=== PATIENT | female | born 1985 | race Caucasian/White ===

== ENCOUNTER → 2017-08-10 | Outpatient (CLI) | payer BC ==
[~2017-08-10] MED LIST: ACE3 PO; CALC-515 PO; FERR-1 PO; HYDR2TAB4 PO; IBU800 PO; IBUP-56 PO; IBUP800T37 PO; NORG1TAB76 PO; NORG1TAB97 PO; RED600CA15 PO; UBID30CA27 PO
[2017-08-10 08:38] LABS: PLATELET COUNT, AUTOMATED 268 K/uL (150-450)
[2017-08-10 09:16] LABS: LDL CHOLESTEROL 146 mg/dl
== END ==
LOC: LAB 08:14
PROVIDERS: ATTEND Nurse Practitioner Family
DX: Z00.01 Encounter for general adult medical examination with abnormal findings (principal); N92.6 Irregular menstruation, unspecified
CPT/HCPCS: 36415; 82040; 82247; 82310; 82374; 82435; 82465; 82565; 82947; 83718; 84075; 84132; 84155; 84295; 84443; 84450; 84460; 84478; 84520; 84703; 85025

== ENCOUNTER 2018-09-04 05:29 | Inpatient (IN) | payer BC ==
[~2018-09-04] VITALS: Ht 162.6 cm; Wt 71.7 kg
[2018-09-04] MEDS ORDERED: cefOXitin/DEX(*) 2GM/50ML PREM 50 ML IVPB PRN (05:35)
[2018-09-04] MEDS ORDERED: METOCLOPRAMIDE 10 MG/2 ML SDV IVP PRN (05:35)
[2018-09-04] MEDS ORDERED: LIDOCAINE 1% LOCAL 300 MG/30ML INJ PRN (05:35)
[2018-09-04] MEDS ORDERED: FAMOTIDINE(*) 20MG/50ML PREMIX 50 ML IVPB PRN (05:35)
[2018-09-04] MEDS ORDERED: DLR(*) 1000 ML BAG 1,000 ML IV PRN (05:35)
[2018-09-04] MEDS ORDERED: FLUSH 10 ML SYR IVP PRN (05:35)
[2018-09-04] MEDS ORDERED: fentaNYL CITR 100 MCG/2 ML AMP IVP PRN (05:35)
[2018-09-04] MEDS ORDERED: OXYTOCIN 30 UNIT/D5LR 500 ML 500 ML IV PRN (05:35)
[2018-09-04 05:50] VITALS: BP_SYST 117; BP_SYST 124; BP_DIAS 79; BP_DIAS 81; Ht 162.6 cm; Wt 71.7 kg
[2018-09-04] MEDS ORDERED: PENICILLIN G 5 MILLUN/100 ML 100 ML IVPB ONE (06:00)
[2018-09-04] MEDS: LR(*) 1000 ML BAG 1,000 ML IV PRN ×4 (06:10→13:31)
[2018-09-04 06:17] LABS: PLATELET COUNT, AUTOMATED 182 K/uL (150-450)
[2018-09-04] MEDS: OXYTOCIN 30 UNIT/D5LR 500 ML 500 ML IV PRN ×2 (06:45→07:11)
[2018-09-04] MEDS ORDERED: PNV1COMB5 (08:14)
[2018-09-04] MEDS ORDERED: LIDOCAINE/PF 2% 200MG/10ML AMP 200 MG/10 ML AMPUL EPI PRN (08:50)
[2018-09-04] MEDS ORDERED: BUPIVACAINE 0.5% INJ 30ML VIAL EPI PRN (08:50)
[2018-09-04] MEDS ORDERED: fentaNYL CITR 100 MCG/2 ML AMP IT PRN (08:50)
[2018-09-04] MEDS ORDERED: BUPIVACAINE 0.25% MPF INJ EPI PRN (08:50)
[2018-09-04] MEDS ORDERED: EPIDURAL KEYS XX PRN (08:50)
[2018-09-04] MEDS ORDERED: FENTANYL/ROPIVACAINE 100 ML BAG EPI PRN (08:50)
[2018-09-04] MEDS ORDERED: LIDO/EPI 2% MPF 1:200,000 20ML EPI PRN (08:50)
[2018-09-04] MEDS ORDERED: PENICILLIN G 2.5 MILLUN/100 ML 100 ML IVPB SCH (10:00)
[2018-09-04] MEDS ORDERED: ePHEDrine 25 MG/5 ML DISP.SYR IVP ONE (12:17)
[2018-09-04] MEDS ORDERED: ONDANSETRON 4 MG/2 ML VIAL ONE (12:46)
[2018-09-04] MEDS ORDERED: fentaNYL CITR 100 MCG/2 ML AMP ONE (12:48)
[2018-09-04] MEDS ORDERED: BUPIVACAINE 0.25% MPF INJ ONE (12:48)
[2018-09-04] MEDS ORDERED: FENTANYL/ROPIVACAINE 100ML BAG 0 ML ONE (12:49)
[2018-09-04] MEDS ORDERED: ONDANSETRON 4 MG/2 ML VIAL IVP PRN (12:50)
--- NOTE | 2018-09-04 13:54 | Anesthesia OB Pre-Anes Eval ---
History of Present Illness Anesthesia Start Date: Sep 04, 2018 Anesthesia Start Time: 12:52 OB Anesthesia Diagnosis: induction - elective EDC: Sep 05, 2018 : 2 Para: 1 Pain Ratin Result Diagram: 09/04/18 0610 Height (Inches): 64.00 Weight (Pounds): 158 Past Medical History Medical History: no pertinent history Surgical History: noncontributory Previous Anesthesia: epidural Attended Childbirth Classes?: No Hx Anesthesia Reactions: No Hx Family Anesthesia Reaction: No Current Medications: pitocin Home Meds Reported Medications Pnv #116/Iron Fumarate/Fa/Dha (EXPECTA COMBO PACK) 1 Each Combo..pkg 09/04/18 Discontinued Reported Medications Norgestimate-Ethinyl Estradiol (MONONESSA) 1 Each Tablet, 1 EACH PO 08/17/16 Allergies: Coded Allergies: Sulfa (Sulfonamide Antibiotics) (Verified Allergy, Severe, HIVES AND ANAPHYLAXIS, 08/17/16) Anesthesia OB ROS Neurological: No migraines/headaches, No seizures, No neuropathy, No other ENT: Denies Tooth caps, Denies Loose teeth, Denies Chipped teeth, Denies Dentures, Denies Bridges, Denies Retainers, Denies Veneers, Denies Implants, Denies Tongue ring, Denies Other Pulmonary: No asthma, No smoker (pks/day/yrs), No other Airway Class: ll Cardiovascular ROS: No edema, No arrhythmia, No other GI ROS: clear liquids Last Solids Date: Sep 04, 2018 Last Solids Time: 04:30 ROS: No Herpes, No STD(s), No Liver Disease, No Renal Disease, No Other Endocrine ROS: No diabetes, No gestational diabetes, No thyroid disorder, No other Musculoskeletal ROS: No low back pain, No low back injury, No scoliosis, No other ASA Classification: 2 Assessment and Plan Anesthesia Plan: GOLDY NUNEZ CRNA Sep 04, 2018 13:54
--- NOTE | 2018-09-04 13:59 | Procedure Note ---
Anesthetic Placement Note Anesthesia Plan: CSE Permit for Anesthesia Signed: Yes Anesthesia Technique: Patient Sitting Anesthesia Prep: Chlorhexidine Interspace: L 3-4 Local Anesthetic: 1% Lidocaine, 25 Gauge Needle Amount Local - cc's: 3 Anesthesia Needle: 17g Touhy/Schliff Anesthesia Attempts: 1 Loss of Resistance: Normal Saline Depth of SVETLANA (cm): 4 Epidural Needle Placement: No CSF, No Blood, No Parasthesia Intrathecal Needle: 27 Gauge Pencan Cerebral Spinal Fluid: Yes, Clear Catheter Insertion (cm): 4 Catheter Type: Donnelly - Spring Wound Epidural Dressing: Tegaderm, Tape Anesthesia Tray: Lot Number ([id number]), Expiration Date (06/17), Reference Number ([id number]) Anesthesia Medications: Intrathecal Dose: mcg Fentanyl (10), mg Marcaine MPF (2.5), Time (1301) Epidural Test Dose: 1.5 Lido/Epi (1:200,000), Dose - mL (3), Time (1302), Negative Comment: Pt was 9 cm after epidural. Pump not started GOLDY MANE CRNA Sep 04, 2018 13:59
[2018-09-04] MEDS ORDERED: BENZOCAINE 20% 60 ML BTL TP PRN (14:20)
[2018-09-04] MEDS ORDERED: LANOLIN OINT 7 GM TUBE TP PRN (14:20)
[2018-09-04] MEDS ORDERED: HYDROCORTISONE 2.5% CR 30GM TB PR PRN (14:20)
[2018-09-04] MEDS ORDERED: GLYCERIN/WITCH HAZEL LEAF 1 PK TP PRN (14:20)
[2018-09-04] MEDS ORDERED: ACETAMINOPHEN 325 MG TAB PO PRN (14:20)
[2018-09-04] MEDS ORDERED: APAP/HYDROCODONE 325/5 TAB PO PRN (14:20)
[2018-09-04] MEDS ORDERED: MAGNESIUM HYDROXIDE* 30ML UDCP PO PRN (14:20)
--- NOTE | 2018-09-04 14:22 | Anesthesia Progress Note ---
Assessment and Plan Anesthesia Plan: CSE Anesthesia Stop Day: Sep 04, 2018 Anesthesia Stop Time: 14:20 Epidural Catheter Removal: Removed Catheter Intact, Removed by: (Priscilla JOHNSON) Removal Date: Sep 04, 2018 GOLDY MANE CRNA Sep 04, 2018 14:22
--- NOTE | 2018-09-04 14:27 | History & Physical ---
History of Present Illness Age of Patient: 33 : 2 Para or TPAL: 1 EDC per LMP: Sep 05, 2018 Estimated Gestational Age: 39.6 Chief Complaint IOL History of Present Illness Presents for IOL scheduled. uncomplicated. Past Medical, Surgical, Family and Obstetric Histories reviewed. Please see OG chart. History Allergies: Coded Allergies: Sulfa (Sulfonamide Antibiotics) (Verified Allergy, Severe, HIVES AND ANAPHYLAXIS, 08/17/16) Med Rec Home Meds Reported Medications Pnv #116/Iron Fumarate/Fa/Dha (EXPECTA COMBO PACK) 1 Each Combo..pkg 09/04/18 Discontinued Reported Medications Norgestimate-Ethinyl Estradiol (MONONESSA) 1 Each Tablet, 1 EACH PO 08/17/16 Review of Systems All Systems Reviewed/Normal: Yes, Except as Noted Exam General Exam Vital Signs Vital Signs Date Time Temp Pulse Resp B/P (MAP) Pulse Ox O2 Delivery O2 Flow Rate FiO2 09/04/18 05:50 98.4 101 23 117/79 (92) Room Air General Apperance: Alert/Awake/No Acute Distress Neuro: No Gross deficits Eyes: Normal Extraocular Movement & Vison Cardiovascular: Regular Rate and Rhythm Respiratory: No Respiratory Distress Abdomen: Soft, Non-Tender, Non-Distended Extremities: No Cyanosis,Clubbing or Edema Integumentary: Skin Intact without Lesions or Rash Psychological: Alert & Oriented X3, Appropriate Mood & Affect Cervical Dialation: 3 Cervical Effacement (%): 80 Station: -2 Presentation: Vertex Fetus Heart Tone Variabilty: Moderate FHT Accelerations: 15X15 FHT Category: I Medical Decision Making Data Points Result Diagram: 09/04/18 0610 VTE Prophylasis: Adult Deep Vein Thrombosis/Pulmonary: No Pharmacological Contraindicati: Pt at Low Risk for VTE Mechanical Contraindications: Pt at Low Risk for VTE Assessment and Plan CLINICAL MEDICAL TRANSCRIPTIONIST Plan: Routine Labor Care Problems: (1) 40 weeks gestation of Assessment & Plan: IOL for logistical reasons at term with favorable cervix. Pitocin induction. SUMIT HAYNES MD Sep 04, 2018 14:27
--- NOTE | 2018-09-04 14:31 | OB Delivery Note ---
Delivery Note Vaginal Delivery Type: Spont. Vaginal Delivery Delivery Date: Sep 04, 2018 Delivery Time: 14:09 Estimated Gestational Age(wks): 40.0 Delivery Anesthesia: Epidural Sex: Male [place] Apgars: 1 Minute (8), 5 Minute (9) Estimated Blood Loss: 100 Notes: IOL for logistics and favorable cervix at term. uncomplicated. Healthy mom. Presented at 2 cm and progressed to 3 cm by 10 am. 4 cm by 1200 and 9 cm by 1315. Complete at 1348. Good pushes and brought baby in CLARITZA position to . Perineum supported while head delivered over intact perineum. Nuchal cord x 1 and reduced. Shoulders delivered with a push and remainder of baby followed without difficulty. No complications. Placenta delivered spontaneous and intact. Manager Compliance in Attendence: No Copies to: SUMIT HAYNES MD ; SUMIT HAYNES MD Sep 04, 2018 14:31
[2018-09-04] MEDS: IBUPROFEN 800 MG TAB PO SCH (15:54)
[2018-09-04 19:30] VITALS: BP 126/70
[2018-09-04] MEDS: DOCUSATE CALCIUM 240 MG CAP PO SCH (20:43)
[2018-09-05] MEDS: IBUPROFEN 800 MG TAB PO SCH ×2 (00:21→08:28)
[2018-09-05 00:30] VITALS: BP 108/65
[2018-09-05 03:03] VITALS: BP 110/67
[2018-09-05 07:30] VITALS: BP 111/69
--- NOTE | 2018-09-05 08:08 | OB/GYN Progress Note ---
OB Subjective Progress Notes Subjective Doing well. No problems. GI: NEG Nausea : Voiding Well Pain: Mild OB Objective Physical Exam Vital Signs Date Time Temp Pulse Resp B/P (MAP) Pulse Ox O2 Delivery O2 Flow Rate FiO2 09/05/18 03:03 98.0 70 16 110/67 (81) 94 Room Air Intake and Output 09/05/18 07:00 Intake Total 1100 ml Balance 1100 ml Intake IV Total 1100 ml # Voids 1 General Appearance: Alert/Awake/No Acute Distress Neurological: No Gross deficits Eyes: Normal Extraocular Movement & Vison Cardiovascular: Normal Rhythm & Peripheral Pulses Respiratory: No Respiratory Distress Abdomen: Soft, Non-Tender, Non-Distended Extremities: No Cyanosis,Clubbing or Edema Integumentary: Skin Intact without Lesions or Rash Psychological: Alert & Oriented X3, Appropriate Mood & Affect Result Diagram: 09/05/18 0654 Assessment and Plan 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
[2018-09-05] MEDS ORDERED: IBUP800T37 PO (08:09)
--- NOTE | 2018-09-05 08:11 | OB/GYN Discharge Summary ---
Discharge Summary Reason for Hosp/Final Diag: (1) 40 weeks gestation of [place] Vital Signs Vital Signs Date Time Temp Pulse Resp B/P (MAP) Pulse Ox O2 Delivery O2 Flow Rate FiO2 09/05/18 03:03 98.0 70 16 110/67 (81) 94 Room Air Weight (Pounds): 158 Result Diagram: 09/05/18 0654 Condition: Improved Discharge: Home, Self Assisted Meds Reported Medications Pnv #116/Iron Fumarate/Fa/Dha (EXPECTA COMBO PACK) 1 Each Combo..pkg 09/04/18 Discontinued Reported Medications Norgestimate-Ethinyl Estradiol (MONONESSA) 1 Each Tablet, 1 EACH PO 08/17/16 Follow up Referrals: DERMATOLOGY NURSE - In 6 Weeks @ [facility] with SUMIT MILLS MD Follow up with: Dr. Mills [phone] Follow up in: 6 wks PP or PO Discharge Diet: As Tolerates Discharge Activity: As Tolerates, No Heavy Lifting x 6 wks, No Heavy Lifting > 10lb, Pelvic Rest Copies to: SUMIT MILLS MD ; SUMIT MILLS MD Sep 05, 2018 08:11
[2018-09-05] MEDS: DOCUSATE CALCIUM 240 MG CAP PO SCH (08:28)
[2018-09-05 11:00] VITALS: BP 96/57
--- NOTE | 2018-09-05 13:57 | Anesthesia Post Eval Note ---
Anesthesia Post Eval Note Vital Signs 09/05/18 09/05/18 09/05/18 03:03 07:30 11:00 Temp 98.3 Pulse 70 Resp 17 B/P (MAP) 96/57 (70) Pulse Ox 99 O2 Delivery Room Air Pt able to participate in Eval: Yes Cardiovascular Status: Satisfactory Respiratory Status: Satisfactory Pain Managment: Satisfactory PO Nausea/Vomiting: Satisfactory Temperature Management: Satisfactory Mental Status: Satisfactory, Alert, Oriented X3 Post-Op Hydration Status: Satisfactory, Tolerating PO Well, Voiding w/o Difficulty Anesthesia Type: GOLDY NUNEZ CRNA Sep 05, 2018 13:57
[2018-09-06] MEDS ORDERED: MEASLES,MUMP,RUBELLA VAC 0.5ML SUBQ ONE (09:00)
[2018-09-06] MEDS ORDERED: DIPHTH/TETANUS/ACEL. PERTUSSIS IM ONLY ONE (09:00)
[2018-09-06] MEDS ORDERED: INFLUENZA VIRUS VAC 0.5ML SYR IM ONLY ONE (09:00)
== END 2018-09-05 15:55 | disposition home or self-care (01) | DRG 806 ==
LOC: OB 05:29
PROVIDERS: ADMIT Obstetrics & Gynecology; ATTEND Obstetrics & Gynecology
PROC: 10E0XZZ Delivery of Products of Conception, External Approach (ICD-10-PCS; principal; 2018-09-04)
PROC: 3E033VJ Introduction of Other Hormone into Peripheral Vein, Percutaneous Approach (ICD-10-PCS; 2018-09-04)
DX: O99.824 Streptococcus B carrier state complicating childbirth (principal); O36.0130 Maternal care for anti-D [Rh] antibodies, third trimester, not applicable or unspecified; Z37.0 Single live birth; O69.81X0 Labor and delivery complicated by cord around neck, without compression, not applicable or unspecified; Z3A.40 40 weeks gestation of pregnancy
CPT/HCPCS: 36415; 85025; 85027; 86850; 86900; 86901; J2405; J2540; J2590; J3010; J7120; S0020